=== PATIENT | female | born 1955 | race Caucasian/White ===

== ENCOUNTER → 2017-07-16 | Outpatient (CLI) | payer MEDICARE ==
[~2017-07-16] MED LIST: ARTHROTEC EC 71 EACH PO; AZITHROMYCIN250 MG PO; CYMBALTA60 MG PO; DICLOFENAC SODI75 MG PO; HYDROCODON-ACE1 EA10 PO; HYDROCODON-ACE1 EAC3 PO; HYDROCODON-ACE1 EAC9 PO; IMITREX6 MG/0.51; LABETALOL HCL100 MG PO; LEVAQUIN500 MG PO; LISINOPRIL10 MG PO; LYRICA100 MG PO; LYRICA75 MG PO; NASONEX17 GM INH; PAROXETINE HCL20 MG PO; PAXIL20 MG PO; PAXIL40 MG PO; SUMATRIPTAN SUC25 MG PO; TALWIN NX; VICODIN 5-5001 EACH PO; Z.0.IMITREX100 MG; Z.0.LIPITOR40 MG; Z.0.PAXIL40 MG; pepto bismol
--- NOTE | 2017-07-16 13:30 | Diagnostic Imaging Report ---
EXAMINATION: MRI of the lumbar spine without contrast HISTORY: Chronic low back pain COMPARISON: Lumbar spine MRI on 05-05-14 TECHNIQUE: Sagittal T1, T2, STIR; axial T2 and proton density. FINDINGS: It is assumed that there are 5 lumbar vertebrae. Curvature/Alignment: Normal lordosis. Vertebrae: No evidence of recent fracture, infection, or neoplasm. Conus: Normal, terminating at T12-L1 Cauda equina: Unremarkable. Lower thoracic: Mild disc bulge at T10-T11 and T11-T12 without stenosis Paraspinal soft tissues: Partially visualized T2 hyperintense portable cyst in the left kidney. Degenerative changes: L1-L2: Unremarkable. L2-L3: Decreased disc height and T2 signal intensity, slightly asymmetric to the left and minimal facet arthroses. No significant canal or foraminal stenosis L3-L4: Decrease disc height and T2 signal intensity, mild symmetric disc bulge, prominent facet arthrosis. Minimal anterolisthesis. No significant canal or foraminal stenosis. L4-L5: Decreased disc height and T2 signal intensity, mild symmetric disc bulge and bilateral facet arthrosis. Moderate right and mild left foraminal stenosis. No significant canal stenosis L5-S1: Minimal facet arthrosis. No canal or foraminal stenosis IMPRESSION: 1. Moderate right and mild left degenerative foraminal stenoses at L4-5. No evidence of neural compression. 2. Mild spondylosis and facet arthrosis from L2-L3 to L4-5 otherwise without significant canal or foraminal stenosis. 3. Minimal degenerative spondylolisthesis at L3-L4. Signed by: Dr. Ronit Anne M.D. on 07/16/2017 1:27 PM
== END ==
LOC: MRI 09:57
PROVIDERS: ATTEND Anesthesiology
DX: M54.5 Low back pain (principal)
CPT/HCPCS: 72148

== ENCOUNTER → 2017-08-09 | Outpatient (CLI) | payer OTHER, MEDICARE ==
--- NOTE | 2017-08-10 11:41 | Diagnostic Imaging Report ---
History: Headaches. Comparison studies: None Technique: Sagittal T2; axial DWI, FLAIR, MPGR, T1, Coronal FLAIR. Intravenous contrast: None Findings: Scalp: Normal in signal . No masses . Bone marrow: Normal in signal intensity. Extra-axial: No masses, no fluid collections. Brain sulci: Appropriate for age. Ventricles: Normal in size . No hydrocephalus . Parenchyma: Scattered small T2/flair hyperintensities of the periventricular and deep white matter No masses, hemorrhage, acute or chronic vascular insults. Suprasellar region: No abnormalities. Craniocervical junction: No abnormalities. Patent foramen magnum. No Chiari one malformation. Vessels: Normal flow-voids in the arteries and sinuses. IMPRESSION: 1. No acute intracranial abnormalities. 2. Mild chronic microvascular ischemic changes of the white matter. Age-appropriate volume loss. Signed by: DR Logan Coombs M.D. on 08/10/2017 11:37 AM
== END ==
LOC: MRI 09:41
PROVIDERS: ATTEND Family Medicine
DX: G43.909 Migraine, unspecified, not intractable, without status migrainosus (principal); Z87.898 Personal history of other specified conditions
CPT/HCPCS: 70551

== ENCOUNTER → 2017-12-12 | Outpatient (CLI) | payer OTHER ==
--- NOTE | 2017-12-13 07:37 | Diagnostic Imaging Report ---
Exam: Lumbar spine MRI without IV contrast History: Lumbar spine MRI 07/16/2017 and 05/05/2014. Comparison studies: None Technique: Sagittal and axial T2 , sagittal T1 and IR, axial spin density oblique. Intravenous contrast: None Findings: Number of lumbar vertebral bodies: 5. Alignment: Normal lumbar lordosis. Mild lumbar curvature convex to the right centered at L2-L3. Minimal degenerative Grade 1 retrolisthesis of L2 on L3, anterolisthesis of L3 on L4 and retrolisthesis of L4 and L5. Soft tissues: No T2 hyperintense inflammatory changes. Paraspinal muscles: No signal abnormalities. Well-preserved. No atrophic changes Lower thoracic cord: Normal in signal and morphology. The tip of the conus is at T12-L1. Cauda equina: No masses. No arachnoiditis. Vertebrae: No compression fractures, infection or neoplasm. Degenerative changes: Loss of T2/STIR disc signal from T9 to T12 and from L2 to L5. T11-T12: Mild loss of disc height. Disc bulge and mild facet arthrosis do not result in significant canal or foraminal stenosis. T12-L1: No abnormalities. L1-L2: Mild facet arthrosis. Patent canal and foramina. L2-L3: Mild loss of disc height. Asymmetric left disc bulge with small foraminal annular fissure and bilateral facet arthrosis with small bilateral facet effusions without significant canal or foraminal stenosis L3-L4: Mild loss of disc height. Asymmetric left disc bulge with small annular fissures, thickened ligamentum flavum and bilateral facet arthrosis with small left facet effusion without significant canal or foraminal stenosis. L4-L5: Mild loss of disc height posteriorly. Asymmetric right disc bulge, thickened ligamentum flavum and bilateral facet arthrosis with small bilateral facet effusions with mild foraminal stenosis (right greater than left. No significant canal stenosis. L5-S1: Mild right facet arthrosis. Patent canal and foramina. Additional findings: A T2 hyperintense 3.3 cm left renal cyst is unchanged. IMPRESSION: No significant changes from the previous lumbar spine MRI 07/16/2017. 1. Mild multilevel disc degeneration. 2. Mild mild L4-L5 degenerative foraminal stenosis (right greater than left). 3. Multilevel facet arthrosis. 4. No significant lumbar canal stenosis. Signed by: Dr. Dane Dunlap M.D. on 12/13/2017 7:34 AM
== END ==
LOC: MRI 08:57
PROVIDERS: ATTEND Family Medicine
DX: M54.41 Lumbago with sciatica, right side (principal); R29.898 Other symptoms and signs involving the musculoskeletal system
CPT/HCPCS: 72148

== ENCOUNTER → 2018-03-27 | Outpatient (CLI) | payer MEDICARE, OTHER ==
--- NOTE | 2018-03-28 15:02 | Diagnostic Imaging Report ---
EXAMINATION: MRI of the cervical spine without contrast HISTORY: Status post fall 2 weeks ago, severe neck pain, prior spine surgery COMPARISON: Cervical spine CT on 09/06/2016 TECHNIQUE: Sagittal T1, T2, STIR; axial T2, gradient echo. Image quality: Magnetic susceptibility artifact from spinal fusion limits overall evaluation. FINDINGS: Curvature: Persistent kyphotic malalignment and from C6 to T1. Vertebrae: -Status post ACDF with solid interbody fusion from C5 to C7. Stable posterior retropulsion of C7 within the spinal canal, better visualized on cervical spine CT. -No acute fractures or evidence of infection. Foramen magnum: No mass, Chiari malformation, or basilar invagination. Spinal Cord: Limited evaluation, grossly no abnormal signal or atrophy. Soft Tissues: Unremarkable. Degenerative changes: C1-C2: Unremarkable. C2-C3: Unremarkable. C3-C4: Asymmetric to the right disc osteophyte complex formation, bilateral uncovertebral and facet arthrosis. Persistent moderate foraminal stenosis on the right. Mild canal stenosis. C4-C5: Asymmetric to the right disc osteophyte, uncovertebral and facet arthrosis. Persistent moderate right foraminal stenoses . C5-C6: Growth with no stenoses C6-C7: Gross renal stenoses C7-T1: Cannot be evaluated. IMPRESSION: Suboptimally study due to magnetic susceptibility artifact. 1. No acute abnormalities. 2. Unchanged kyphotic malalignment from C6 to T1. 3. Unchanged moderate degenerative foraminal stenoses on the right at C3-C4 and C4-C5. Signed by: Dr. Ronit Anne M.D. on 03/28/2018 2:59 PM
== END ==
LOC: MRI 16:44
PROVIDERS: ATTEND Family Medicine
DX: Z98.890 Other specified postprocedural states (principal); M47.812 Spondylosis without myelopathy or radiculopathy, cervical region
CPT/HCPCS: 72141

== ENCOUNTER → 2018-07-08 | Outpatient (CLI) | payer OTHER ==
--- NOTE | 2018-07-08 12:10 | Diagnostic Imaging Report ---
TECHNIQUE: Magnetic resonance imaging of the LEFT KNEE was performed WITHOUT injected contrast. HISTORY: Acute pain, fell, jumped down off the porch, 2 weeks ago, no provided history of prior surgery COMPARISON: None available. FINDINGS: LIGAMENTS AND TENDONS: ACL: The distal fibers near the tibial insertion are ill-defined with hyperintense signal and subtle laxity. PCL: Intact Collateral ligaments: Intact Iliotibial band: Unremarkable Popliteal tendon: Intact Extensor mechanism: Intact JOINT: Menisci: Medial: Focal attenuation extending to the tibial articular surface of the posterior horn (series 7 image 20). Mild free margin attenuation and contour irregularity of the body and posterior horn. Lateral: Severe attenuation and complex tearing of the anterior horn and to a lesser degree the free margin and tibial articular surface of the body, peripheral extrusion of the body remnants. Articular Cartilage: Medial Compartment: Low-grade erosion of the weightbearing cartilage. Lateral Compartment: Erosion of the weightbearing cartilage, most notably high-grade of the posterior weightbearing cartilage. Patellofemoral Compartment: Diffuse low to intermediate grade erosion of the patellar cartilage. Joint Fluid: A large nonspecific joint effusion with prominent synovitis and a multilobulated Sellers's cyst, measuring up to 2.6 cm (AP) x 2.6 cm (ML) x 7.1 cm (CC). BONES: No focal or infiltrative bone marrow replacing abnormality. No acute fracture. Mild subchondral bone marrow edema at the posterior periphery of the lateral tibial plateau. SOFT TISSUES: Moderate regional soft tissue edema. IMPRESSION: 1. Acute versus acute on chronic low-grade partial thickness tearing and high-grade sprain of the anterior cruciate ligament. 2. Degenerative tearing of the lateral meniscus greater than the medial meniscus, acute on chronic tearing of the lateral meniscus is probable. 3. Small focal lateral tibial plateau bone marrow contusion. 4. Prominent synovitis with a large joint effusion and multilobulated Sellers's cyst. 5. Tricompartmental osteoarthrosis. Signed by: Dr. Joe Marina D.O., M.M.M. on 07/08/2018 12:07 PM
== END ==
LOC: MRI 10:43
PROVIDERS: ATTEND Family Medicine
DX: M25.562 Pain in left knee (principal)

== ENCOUNTER 2018-08-07 12:35 | Emergency (ER) | payer MEDICARE, OTHER ==
[~2018-08-07] VITALS: Ht 160 cm; Wt 62.6 kg
--- OUTSIDE RECORDS SUMMARY | 2018-08-07 12:38 | XMS REPORT | Summary of Care ---
Author Author [facility] Outpatient Imaging [facility] [place] Address Unknown Phone Unavailable Encounter HQ Encntr_alias(FIN) [id number] Date(s): 02/29/16 - 02/29/16 [facility] Outpatient [facility] [place] [address] [place] [phone] Discharge Disposition: Home or Self Care Attending Physician: Humberto Loyd MD Vital Signs No data available for this section Problem List No data available for this section Allergies, Adverse Reactions, Alerts No data available for this section Medications No data available for this section Results No data available for this section Immunizations No data available for this section Procedures Procedure Date Related Diagnosis Body Site Injection procedure for ankle arthrography 02/29/16 Social History No data available for this section Assessment and Plan No data available for this section
--- OUTSIDE RECORDS SUMMARY | 2018-08-07 12:38 | XMS REPORT | Summary of Care ---
Author Author [facility] Outpatient Imaging - [place] Organization [facility] [place] Address Unknown Phone Unavailable Encounter HQ Encntr_khadijah(FIN) [id number] Date(s): 11/18/15 - 11/18/15 [facility] Out[facility] - [place] [address] [place] [phone] Discharge Disposition: Home Attending Physician: Dane Santoyo MD Vital Signs No data available for this section Problem List No data available for this section Allergies, Adverse Reactions, Alerts No data available for this section Medications No data available for this section Results No data available for this section Immunizations No data available for this section Procedures No data available for this section Social History No data available for this section Assessment and Plan No data available for this section
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
--- OUTSIDE RECORDS SUMMARY | 2018-08-07 12:38 | XMS REPORT | Summary of Care ---
Author Author [facility] Outpatient [facility] - [place] Organization [facility] [place] Address Unknown Phone Unavailable Encounter HQ Encntr_aliдмитрий(FIN) [id number] Date(s): 09/24/15 - 09/24/15 [facility] [place] [address] [place], [place] [address] [phone] Discharge Disposition: Home Attending Physician: Dane Santoyo [...]
--- OUTSIDE RECORDS SUMMARY | 2018-08-07 12:38 | XMS REPORT | Summary of Care ---
Author Author [facility] Neurosurgery [facility] Organization [facility] Address Unknown Phone Unavailable Encounter HQ Sony(FIN) [id number] Date(s): 01/01/18 - 01/01/18 [facility] Neurosurgery [facility] [address] [address], [address] [place] [phone] Discharge Disposition: Home or Self Care Attending Physician: Aleksander Lagunas MD Referring Physician: Bi Hall DO Vital Signs No data available for this [...]
--- OUTSIDE RECORDS SUMMARY | 2018-08-07 12:38 | XMS REPORT | Summary of Care ---
Author Author [facility] Neurosurgery [facility] Organization [facility] Neurosurgery [facility] Address Unknown Phone Unavailable Encounter HQ Fannientr_khadijah(FIN) [id number] Date(s): 12/17/17 - 12/18/17 [facility] Neurosurgery [facility] [address], [address] [place] [phone] Vital Signs No data available for this [...]
--- OUTSIDE RECORDS SUMMARY | 2018-08-07 12:38 | XMS REPORT | Clinical Summary ---
Author Author [facility] Organization [facility] Address Unknown Phone Unavailable Care Team Providers Care Metal Loader Name Role Phone Asked, No Pcp PCP Unavailable Allergies Comments Active Allergy Reactions Severity Noted Date Ketorolac Hives, 01/24/2017 Itching Shellfish Derived Hives Medications End Date Status Medication Sig Dispensed Refills Start Date Active pregabalin (LYRICA) 100 Lyrica 100 mg 0 MG capsule capsule Active mometasone (NASONEX) 50 Nasonex 50 0 mcg/actuation nasal spray mcg/actuation [place] Active PARoxetine (PAXIL) 40 MG Take 1 tablet 0 tablet every day by oral route. Active SUMAtriptan (IMITREX) 100 sumatriptan 0 MG tablet 100 mg tablet Active SUMAtriptan succinate sumatriptan 6 0 (IMITREX) 6 mg/0.5 mL mg/0.5 mL solution subcutaneous solution Active lisinopril Daily 0 (PRINIVIL,ZESTRIL) 10 mg tablet Active HYDROcodone-acetaminophen Take 1 tablet 0 (NORCO) 10-325 mg per by mouth tablet every 6 (six) hours as needed for moderate pain. Active LIPITOR 20 mg tablet Take 20 mg by 0 mouth daily. 8 05/01/2018 Discontinued labetalol (NORMODYNE) 100 labetalol 100 0 MG tablet mg tablet 05/01/2018 Discontinued pneumococcal Pneumovax 23 0 polysaccharide 23-valent 25 mcg/0.5 mL (PNEUMOVAX 23) 25 mcg/0.5 injection mL vaccine solution 05/15/2018 Discontinued SUMAtriptan succinate Sumavel 0 (SUMAVEL DOSEPRO) 6 DosePro 6 mg/0.5 mL needle-free mg/0.5 mL injector subcutaneous needle-free injector 05/01/2018 Discontinued gabapentin (NEURONTIN) Take 1 90 capsule 11 300 mg capsule (300 7 capsuleIndications: Acute mg total) by pain of left shoulder mouth 3 (three) times a day. 05/01/2018 Discontinued methocarbamol (ROBAXIN) TAKE 1 TABLET 120 tablet 0 500 MG tabletIndications: BY MOUTH FOUR 7 Acute pain of left TIMES DAILY shoulder 05/20/2018 cephalexin (KEFLEX) 500 Take 1 15 capsule 0 MG capsule capsule (500 8 mg total) by mouth 3 (three) times a day for 5 days. 05/20/2018 acetaminophen-codeine Take 1 tablet 20 tablet 0 (TYLENOL WITH CODEINE #3) by mouth 8 300-30 mg per tablet every 4 (four) hours as needed for moderate pain for up to 5 days. Active Problems Problem Noted Date Arthritis of left shoulder region 03/30/2017 S/P shoulder surgery 02/16/2017 Avascular necrosis of bone 02/16/2017 Breast mass 02/16/2017 Degeneration of lumbar intervertebral disc 02/16/2017 Fracture of 5th metatarsal 02/16/2017 Spinal stenosis 02/16/2017 Status post total shoulder arthroplasty 01/26/2017 Glenoid fracture of shoulder 01/26/2017 Encounters Care Team Description Date Type Specialty Janette Chun NP 05/15/2018 Anesthesia General Surgery Event Darryl Montemayor MD PLACEMENT OF PAIN PUMP SYSTEM 05/15/2018 Surgery General Surgery Darryl Montemayor MD Chronic back pain, unspecified back location, unspecified back pain laterality 05/15/2018 [facility] General Surgery Encounter Maricarmen Barrera, supervisor quality control back pain, unspecified back location, unspecified back pain laterality (Primary Dx) 05/14/2018 Prep for Neurosurgery Surgery Darryl Montemayor MD Preop examination (Primary Dx); Chronic pain syndrome; Chronic low back pain, unspecified back pain laterality, with sciatica presence unspecified 05/01/2018 Pre-Admit Pre-Admission Testing Testing Appointment Darryl Montemayor MD Chronic pain syndrome (Primary Dx); Chronic low back pain, unspecified back pain laterality, with sciatica presence unspecified 04/17/2018 Transcribe Neurosurgery Orders Darryl Montemayor MD Chronic bilateral low back pain with right-sided sciatica (Primary Dx); Chronic pain syndrome 04/15/2018 Office Visit Neurosurgery Darryl Montemayor MD 04/15/2018 Abstract Neurosurgery after 08/06/2017 Family History Medical History Relation Name Comments Cirrhosis Father Cancer Mother Relation Name Status Comments Father Mother Social History Date Tobacco Use Types Packs/Day Years Used Never Smoker Smokeless Tobacco: Never Used Alcohol Use Drinks/Week oz/Week Comments No Sex Assigned at Date Recorded Not on file Industry Job Start Date Occupation Not on file Not on file Not on file Travel End Travel History Travel Start No recent travel history available. Last Filed Vital Signs Time Taken Vital Sign Reading 05/15/2018 2:59 PM RECYCLING DIRECTOR Blood Pressure 127/83 05/15/2018 2:59 PM RECYCLING DIRECTOR Pulse 73 05/15/2018 2:59 PM RECYCLING DIRECTOR Temperature 36.3 C (97.3 F) 05/15/2018 2:59 PM RECYCLING DIRECTOR Respiratory Rate 19 05/15/2018 2:59 PM RECYCLING DIRECTOR Oxygen Saturation 96% - Inhaled Oxygen - Concentration 05/15/2018 10:40 AM RECYCLING DIRECTOR Weight 63.5 kg (140 lb) 05/15/2018 10:40 AM RECYCLING DIRECTOR Height 160 cm (5' 3") 05/15/2018 10:40 AM RECYCLING DIRECTOR Body Mass Index 24.8 Plan of Treatment Health Maintenance Due Date Last Done Comments CERVICAL CANCER SCREENING 1977 BREAST CANCER SCREENING 2006 COLON CANCER SCREENING 2006 SHINGLES VACCINES (#1) 2006 INFLUENZA VACCINE 01/02/2018 Implants Device Identifier Shelf Expiration Date Model / Serial / Lot Implanted Type Area Manufactur er 08/01/2018 [id number] / / [id number] Vitoss Bbtrauma Foam Pack 10cc - IPM Left: Shoulder ROSALINE [id number] IMPLANT ORTH[employer] Implanted: Qty: 1 on 02/16/2017 by Raudel Lora MD 10/20/2021 [id number] / [id number] / Ascend Flex Reversed Traycentered IPM Left: Shoulder TORNIER Reversed Tray (+)0 - [id number] - IMPLANT INC [id number] Implanted: Qty: 1 on 03/30/2017 by Raudel Randolph MD 03/11/2022 [id number] / / Glenosphere - 36mm Emani X 6mm Thk IPM Left: Shoulder ROSALINE 2mm Eccentric - [id number] IMPLANT ORTH[employer] Implanted: Qty: 1 on 03/30/2017 by Raudel Lora MD 01/11/2021 [id number] / / [id number] 6.5mm Center Screw - 40mm - IPM Left: Shoulder ROSALINE [id number] IMPLANT ORTH[employer] Implanted: Qty: 1 on 03/30/2017 by Raudel Lora MD 02/11/2022 [id number] / / Shoulder Glenoid Baseplate Reunion IPM Left: Shoulder ROSALINE Rsa - [id number] IMPLANT ORTH[employer] Implanted: Qty: 1 on 03/30/2017 by Raudel Lora MD 03/30/2021 [id number] / / [id number] 4.5mm Peripheral Screw - 40mm - IPM Left: Shoulder ROSALINE [id number] IMPLANT ORTHOP[employer]IC Implanted: Qty: 2 on 03/30/2017 by Raudel Lora MD 02/11/2022 [id number] / / Shoulder Glenoid Baseplate Reunion IPM Left: Shoulder ROSALINE Rsa - [id number] IMPLANT ORTH[employer]EDIC Implanted: Qty: 1 on 03/30/2017 by Raudel Lora MD 01/02/2022 [id number] / / [id number] 4.5mm Peripheral Screw - 20mm - IPM Left: Shoulder ROSALINE [id number] IMPLANT ORTHOPEDIC Implanted: Qty: 1 on 03/30/2017 by Raudel Lora MD 11/16/2021 [id number] / [id number] / Ascend Flex Standard Reversed IPM Left: Shoulder TORNIER [id number] Diameter Standard IMPLANT INC Reversed Insert (+)9 - [id number] - DEVICES [id number] Implanted: Qty: 1 on 03/30/2017 by Raudel Randolph MD 11/06/2021 [id number] / / [id number] 4.5mm Peripheral Screw - 28mm - IPM Left: Shoulder ROSALINE [id number] IMPLANT ORTHOPEDIC Implanted: Qty: 1 on 03/30/2017 by Raudel Lora MD 09/30/2019 [id number] / [id number] / [id number] Infsn Synchromed Ii W/ Fltr Neurosurgi N/A: N/A MEDTRONIC Sut Loop Prgrmbl Rsvr 20ml - paula NEUROMODUL [id number] - [id number] Implants [facility] Implanted: Qty: 1 on 05/15/2018 by Darryl Montemayor MD 02/01/2023 [id number] / / [id number] Passer Cath W/ Rmvbl Hndl And Ppe Neurosurgi N/A: N/A MEDTRONIC Obtrtr 38cm Strl - [id number] paula NEUROMODUL Implanted: Qty: 1 on 05/15/2018 by Implants ATION Darryl Montemayor MD Procedures Comments Procedure Name Priority Date/Time Associated Diagnosis OR FL < 1 HOUR Routine 05/15/2018 12:35 PM RECYCLING DIRECTOR WA AN ELECTIVE Routine 05/15/2018 ENDOTRACHEAL AIRWAY 12:15 PM RECYCLING DIRECTOR Procedure Note - Shawanda Palacio CRNA - 05/15/2018 12:15 PM RECYCLING DIRECTOR ANESTHESIA INTUBATION Date/Time: 05/15/2018 12:01 PM Performed by: Shawanda Palacio CRNA Authorized by: Lincoln Carpenter MD Location: OR Urgency: Elective Difficult Airway: No Preoxygena jose angel with 100% O2: Yes C-spine Precaution s Maintained Throughout : Yes Mask Ventilatio n: Easy mask Final Airway Type: Endotrache al airway Final Endotrache al Airway: ETT Cuffed: Yes Technique Used: Direct laryngosco py Devices/Me thods Used in Placement: Intubatin g stylet Blade Type: Hamlin Laryngosco pe Blade/Vide olaryngosc ope Blade Size: 2 ETT Size (mm): 7.0 Cuff at minimum occlusion pressure: Yes Measured from: Gums ETT to Gums (cm): 21 Placement Verified by: CO2 detection Laryngosc opic view: Grade I - full view of glottis Number of Attempts at Approach: 1 INSERTION OR REVISION, 05/15/2018 Chronic pain syndrome BACLOFEN OR MORPHINE PUMP 10:55 AM RECYCLING DIRECTOR Case Notes C-ARM, SKYTRON TABLE, MEDTRONIC DEVICE Special Needs C-ARM, SKYTRON TABLE, MEDTRONIC DEVICE URINE CULTURE Routine 05/01/2018 10:57 AM RECYCLING DIRECTOR ECG PRE/POST OP Routine 05/01/2018 Preop examination 9:30 AM RECYCLING DIRECTOR ESTIMATED GFR Routine 05/01/2018 9:02 AM RECYCLING DIRECTOR BASIC METABOLIC PANEL Routine 05/01/2018 Preop examination 9:02 AM RECYCLING DIRECTOR HC COMPLETE BLD COUNT Routine 05/01/2018 Preop examination W/AUTO DIFF 9:02 AM RECYCLING DIRECTOR URINALYSIS SCREEN AND Routine 05/01/2018 Preop examination MICROSCOPY, WITH REFLEX 9:02 AM RECYCLING DIRECTOR TO CULTURE after 08/06/2017 Results * OR FL < 1 Hour (05/15/2018 12:35 PM RECYCLING DIRECTOR) Narrative Performed At EXAMINATION:[place] FL 1 HOUR [facility] C-arm fluoroscopy was requested in OR. Location: [facility] OR 10 Procedure: MED PUMP INS Start: 1220 End: 1235 Fluoro Time: 0.1M mGy: 1.04 Tech: JV IMPRESSION: Separate operative report will be issued by the physician performing the procedure. [id number] Procedure Note Hm Interface, Radiology Results Incoming - 05/15/2018 9:41 PM RECYCLING DIRECTOR EXAMINATION: OR FL 1 HOUR C-arm fluoroscopy was requested in OR. Location: [facility] OR 10 Procedure: MED PUMP INS Start: 1220 End: 1235 Fluoro Time: 0.1M mGy: 1.04 Tech: JV IMPRESSION: Separate operative report will be issued by the physician performing the procedure. [id number] Performing Organization Address City/[facility]/Zipcode Phone Number [facility] [address] [place] [address] * Urine culture (05/01/2018 10:57 AM RECYCLING DIRECTOR) Urine culture SEE COMMENTComment: TOMMY ROLDAN Bacteriuria screen negative. HOSPITAL Performing Organization Address City/[facility] Phone Number [facility] DEPARTMENT OF [address] [place] [id number] PATHOLOGY AND GENOMIC MEDICINE [facility] [address] [place] [address] HOSPITAL * ECG Pre/Post Op (05/01/2018 9:30 AM RECYCLING DIRECTOR) Ventricular rate 67 [facility] Atrial rate 67 [facility] WA interval 148 [facility] QRSD interval 88 [facility] QT interval 420 [facility] QTC interval 443 [facility] P axis 1 53 [facility] QRS axis 1 8 [facility] T wave axis 34 [facility] EKG impression Sinus rhythm with premature [facility] M[facility] supraventricular complexes-Otherwise normal ECG-In automated comparison with ECG of 24-JAN-2017 11:53,-premature supraventricular complexes are now present- Narrative Performed At Performing Organization Address City/[facility]/Zipcode Phone Number [facility] MUSE [address] [place] [phone] * Urinalysis screen and microscopy, with reflex to culture (05/01/2018 9:02 AM RECYCLING DIRECTOR) Specimen site Clean catch Color, UA Straw Appearance, UA Clear Specific gravity, UA 1.025 1.001 - 1.035 pH, UA 5.0 5.0 - 8.5 Protein, UA Negative Negative Glucose, UA Negative Negative Ketones, UA Negative Negative Bilirubin, UA Negative Negative Blood, UA Negative Negative Nitrite, UA Negative Negative Urobilinogen, UA <2.0 <2.0 Leukocyte esterase, UA Negative Negative Epithelial cells, UA <1 /HPF WBC, UA None seen 0 - 4 /HPF RBC, UA <1 0 - 5 /HPF Bacteria, UA None seen None seen Yeast, UA None seen Yeast with pseudohyphae, None seen [facility] Specimen Urine Performing Organization Address City/State/Zipcode Phone Number [facility] DEPARTMENT OF [address] [place] [phone] PATHOLOGY [place] [address] HOSPITAL * Estimated GFR (05/01/2018 9:02 AM RECYCLING DIRECTOR) Estimated GFR 56 (A) mL/min/1.73 m2 [facility] Comment: HOSPITAL CatergoryUnitsInte rpretation G1 >=90 Normal or high G2 60-89Mildly decreased [id number] Mildly to moderately decreased A0z10-16 Moderately to severely decreased G4 15-29Severely decreased G5 <15Kidney failure The eGFR was calculated using the Chronic Kidney Disease Epidemiology Collaboration (CKD-EPI) equation. Interpretation is based on recommendations of the National Kidney Foundation-Kidney Disease Outcomes Quality Initiative (NKF-KDOQI) published in 2014. Specimen Plasma specimen Performing Organization Address City/[facility] Cent[facility]ode Phone Number [address] [address] PATHOLOGY AND GENOMIC MEDICINE [address] * CBC with platelet and differential (05/01/2018 9:02 AM RECYCLING DIRECTOR) WBC 6.49 4.50 - 11.00 k/uL RBC 4.36 4.20 - 5.50 m/uL HGB 12.8 12.0 - 16.0 g/dL HCT 40.1 37.0 - 47.0 % MCV 92.0 82.0 - 100.0 fL MCH 29.4 27.0 - 34.0 pg MCHC 31.9 31.0 - 37.0 g/dL RDW - SD 43.6 37.0 - 55.0 fL MPV 10.2 8.8 - 13.2 fL Platelet count 295 150 - 400 k/uL Nucleated RBC 0.00 /100 WBC Neutrophils 59.8 39.0 - 69.0 % Lymphocytes 28.4 25.0 - 45.0 % Monocytes 8.0 0.0 - 10.0 % Eosinophils 2.3 0.0 - 5.0 % Basophils 0.6 0.0 - 1.0 % Immature granulocytes 0.9Comment: "Immature 0.0 - 1.0 % [facility] granulocytes" (promyelocytes, HOSPITAL myelocytes, metamyelocytes) Specimen Urine Performing Organization Address City/State/Zipcode Phone Number [facility] DEPARTMENT [address] [address] PATHOLOGY AND GENOMIC MEDICINE [address] * Basic metabolic panel (05/01/2018 9:02 AM RECYCLING DIRECTOR) Sodium 143 135 - 148 mEq/L Potassium 4.5 3.5 - 5.0 mEq/L Chloride 102 98 - 112 mEq/L CO2 25 24 - 31 mEq/L Anion gap 16@ANIO (H) 7 - 15 mEq/L BUN 23 8 - 23 mg/dL Creatinine 1.07 (H) 0.50 - 0.90 mg/dL Glucose 101 (H) 65 - 99 mg/dL Calcium 9.7 8.8 - 10.2 mg/dL Specimen Plasma specimen Performing Organization Address City/State/Zipcode Phone Number [facility] DEPARTMENT OF [address] [place] [phone] PATHOLOGY [place] [address] HOSPITAL after 08/06/2017 Insurance Payer Benefit Subscriber ID Type Phone Address Plan / Group [facility] MEDICARE [facility] DUAL xxxxxxxxx HMO COMPLETE [facility] Advance Directives Patient has advance care planning documents on file. For more information, hiral gama contact: [address] [phone]
--- OUTSIDE RECORDS SUMMARY | 2018-08-07 12:38 | XMS REPORT | Summary of Care ---
Author Author [facility] [place] Organization [facility] [place] Address Unknown Phone Unavailable Encounter HQ Encntr_aliдмитрий(FIN) [id number] Date(s): 06/15/17 - 06/15/17 [facility] [place] [address] [place], [place] [address] [phone] Encounter Diagnosis Low back pain (Final) - 06/20/17 Spondylosis without myelopathy or radiculopathy, lumbar region (Final) - Other intervertebral disc degeneration, lumbar region (Final) - Other forms of scoliosis, lumbar region (Final) - Discharge Disposition: Home or Self Care Attending Physician: Kali Lyons MD Vital Signs No data available for [...]
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
--- OUTSIDE RECORDS SUMMARY | 2018-08-07 12:38 | XMS REPORT ---
Author Author [facility] Address Unknown Phone Unavailable Care Team Providers Care Plate Grinder Name Role Phone CHAUNCEY DUBOIS Unavailable Unavailable BRETT DUBOIS Unavailable Unavailable Charly MONTEMAYOR Unavailable Unavailable Charly HAHN Unavailable Unavailable Problems This patient has no known problems. Allergies, Adverse Reactions, Alerts This patient has no known allergies or adverse reactions. Medications This patient has no known medications. Results Test Description Test Time Test Comments Text Results Atomic Results Result Comments MRI KNEE LEFT WO 2018-07-08 11:53:00 [place] [address] Patient Name: BLAYNE YIP MR #: [id number] : 1955 Age/Sex: 63/F Req #: [id number] Adm Physician: Ordered by: DUBOIS ANDREW DO Report #: [id number] Location: MRI Room/Bed: Procedure: [id number] MRI/MRI KNEE LEFT WO Exam Date: 07/08/18 Exam Time: 1110 REPORT STATUS: Signed TECHNIQUE: Magnetic resonance imaging of the LEFT KNEE was performed WITHOUT injected contrast. HISTORY: Acute pain, fell, jumped down off the porch, 2 weeks ago, no provided history of prior surgery COMPARISON: None available. FINDINGS: LIGAMENTS AND TENDONS: ACL: The distal fibers near the tibial insertion are ill-defined with hyperintense signal and subtle laxity. PCL: Intact Collateral ligaments: Intact Iliotibial band: Unremarkable Popliteal tendon: Intact Extensor mechanism: Intact JOINT: Menisci: Medial: Focal attenuation extending to the tibial articular surface of the posterior horn (series 7 image 20). Mild free margin attenuation and contour irregularity of the body and posterior horn. Lateral: Severe attenuation and complex tearing of the anterior horn and to a lesser degree the free margin and tibial articular surface of the body, peripheral extrusion of the body remnants. Articular Cartilage: Medial Compartment: Low-grade erosion of the weightbearing cartilage. Lateral Compartment: Erosion of the weightbearing cartilage, most notably high-grade of the posterior weightbearing cartilage. Patellofemoral Compartment: Diffuse low to intermediate grade erosion of the patellar cartilage. Joint Fluid: A large nonspecific joint effusion with prominent synovitis and a multilobulated Sellers's cyst, measuring up to 2.6 cm (AP) x 2.6 cm (ML) x 7.1 cm (CC). BONES: No focal or infiltrative bone marrow replacing abnormality. No acute fracture. Mild subchondral bone marrow edema at the posterior periphery of the lateral tibial plateau. SOFT TISSUES: Moderate regional soft tissue edema. IMPRESSION: 1. Acute versus acute on chronic low-grade partial thickness tearing and high-grade sprain of the anterior cruciate ligament. 2. Degenerative tearing of the lateral meniscus greater than the medial meniscus, acute on chronic tearing of the lateral meniscus is probable. 3. Small focal lateral tibial plateau bone marrow contusion. 4. Prominent synovitis with a large joint effusion and multilobulated Sellers's cyst. 5. Tricompartmental osteoarthrosis. Signed by: Dr. Stephany Marina D.O., M.M.M. on 07/08/2018 12:07 PM Dictated By: STEPHANY MARINA DO 1207 Transcribed By: MADELYN on 07/08/18 1207 COPY TO: CHAUNCEY DUBOIS DO MRI SPINE CERVICAL WO 2018-03-28 14:37:00 [place] [address] Patient Name: BLAYNE YIP MR #: [id number] : 1955 Age/Sex: 62/F Req #: [id number] Adm Physician: Ordered by: DUBOIS ANDREW DO Report #: [id number] Location: MRI Room/Bed: Procedure: [id number] MRI/MRI SPINE CERVICAL WO Exam Date: Exam Time: REPORT STATUS: Signed EXAMINATION: MRI of the cervical spine without contrast HI STORY: Status post fall 2 weeks ago, severe neck pain, prior spine surgery COMPARISON: Cervical spine CT on 09/06/2016 TECHNIQUE: Sagittal T1, T2, STIR; axial T2, gradient echo. Image quality: Magnetic susceptibility artifact from spinal fusion limits overall evaluation. FINDINGS: Curvature: Persistent kyphotic malalignment and from C6 to T1. Vertebrae: -Status post ACDF with solid interbody fusion from C5 to C7. Stable posterior retropulsion of C7 within the spinal canal, better visualized on cervical spine CT. -No acute fractures or evidence of infection. Foramen magnum: No mass, Chiari malformation, or basilar invagination. Spinal Cord: Limited evaluation, grossly no abnormal signal or atrophy. Soft Tissues: Unremarkable. Degenerative changes: C1-C2: Unremarkable. C2-C3: Unremarkable. C3-C4: Asymmetric to the right disc osteophyte complex formation, bilateral uncovertebral and facet arthrosis. Persistent moderate foraminal stenosis on the right. Mild canal stenosis. C4-C5: Asymmetric to the right disc osteophyte, uncovertebral and facet arthrosis. Persistent moderate right foraminal stenoses . C5-C6: Growth with no stenoses C6-C7: Gross renal stenoses C7-T1: Cannot be evaluated. IMPRESSION: Suboptimally study due to magnetic susceptibility artifact. 1. No acute abnormalities. 2. Unchanged kyphotic malalignment from C6 to T1. 3. Unchanged moderate degenerative foraminal stenoses on the right at C3-C4 and C4-C5. Signed by: Dr. Jose Miguel Anne M.D. on 03/28/2018 2:59 PM Dictated By: JOSE MIGUEL ANNE MD 58 Transcribed By: MADELYN on 03/28/181458 COPY TO: CHAUNCEY DUBOIS DO MRI SPINE LUMBAR WO 2017-12-13 07:21:00 [place] [address] Patient Name: BLAYNE YIP MR #: [id number] : 1955 Age/Sex: 62/F Req #: [id number] Adm Physician: Ordered by: BRETT DUBOIS DO Report #: [id number] Location: MRI Room/Bed: Procedure: [id number] MRI/MRI SPINE LUMBAR WO Exam Date: Exam Time: REPORT STATUS: Signed Exam: Lumbar spine MRI without IV contrast History: Lumbar spine MRI 07/16/2017 and 05/05/2014. Comparison studies: None Technique: Sagittal and axial T2 , sagittal T1 and IR, axial spin density oblique. Intravenous contrast: None Findings: Number of lumbar vertebral bodies: 5. Alignment: Normal lumbar lordosis. Mild lumbar curvature convex to the right centered at L2-L3. Minimal degenerative Grade 1 retrolisthesis of L2 on L3, anterolisthesis of L3 on L4 and retrolisthesis of L4 and L5. Soft tissues: No T2 hyperintense inflammatory changes. Paraspinal muscles: No signal abnormalities. Well-preserved. No atrophic changes Lower thoracic cord: Normal in signal and morphology. The tip of the conus is at T12-L1. Cauda equina: No masses. No arachnoiditis. Vertebrae: No compression f ractures, infection or neoplasm. Degenerative changes: Loss of T2/STIR disc signal from T9 to T12 and from L2 to L5. T11-T12: Mild loss of disc height. Disc bulge and mild facet arthrosis do not result in significant canal or foraminal stenosis. T12-L1: No abnormalities. L1-L2: Mild facet arthrosis. Patent canal and foramina. L2-L3: Mild loss of disc height. Asymmetric left disc bulge with small foraminal annular fissure and bilateral facet arthrosis with small bilateral facet effusions without significant canal or foraminal stenosis L3-L4: Mild loss of disc height. Asymmetric left disc bulge with small annular fissures, thickened ligamentum flavum and bilateral facet arthrosis with small left facet effusion without significant canal or foraminal stenosis. L4-L5: Mild loss of disc height posteriorly. Asymmetric right disc bulge, thickened ligamentum flavum and bilateral facet arthrosis with small bilateral facet effusions with mild foraminal stenosis (right greater than left. No significant canal stenosis. L5-S1: Mild right facet arthrosis. Patent canal and foramina. Additional findings: A T2 hyperintense 3.3 cm left renal cyst is unchanged. IMPRESSION: No significant changes from the previous lumbar spine MRI 07/16/2017. 1. Mild multilevel disc degeneration. 2. Mild mild L4-L5 degenerative foraminal stenosis (right greater than left). 3. Multilevel facet arthrosis. 4. No significant lumbar canal stenosis. Signed by: Dr. Rossana Dunlap M.D. on 12/13/2017 7:34 AM Dictated By: ROSSANA DUNLAP MD 3 Transcribed By: MADELYN on 12/13/17733 COPY TO: BRETT DUBOIS DO MRI BRAIN [place] [address] Patient Name: BLAYNE YIP MR #: [id number] : 1955 Age/Sex: 62/F Req #: [id number] Adm Physician: Ordered by: BRETT DUBOIS DO Report #: [id number] Location: MRI Room/Bed: Procedure: [id number] MRI/MRI BRAIN WO Exam Date: Exam Time: REPORT STATUS: Signed History: Headaches. Comparison studies: None Technique: Sagittal T2; axial DWI, FLAIR, MPGR, T1, Coronal FLAIR. Intravenous contrast: None Findings: Scalp: Normal in signal . No masses . Bone marrow: Normal in signal intensity. Extra-axial: No masses, no fluid collections. Brain sulci: Appropriate for age. Ventricles: Normal in size . No hydrocephalus . Parenchyma: Scattered small T2/flair hyperintensities of the periventricular and deep white matter No masses, hemorrhage, acute or chronic vascular insults. Suprasellar region: No abnormalities. Craniocervical junction: No abnormalities. Patent foramen magnum. No Chiari one malformation. Vessels: Normal flow-voids in the arteries and sinuses. IMPRESSION: 1. No acute intracranial abnormalities. 2. Mild chronic microvascular ischemic changes of the white matter. Age-appropriate volume loss. Signed by: DR Logan Coombs M.D. on 08/10/2017 11:37 AM Dictated By: LOGAN ALLRED MD 113 Transcribed By: MADELYN on 08/10/17 113 COPY TO: BRETT DUBOIS DO MRI SPINE LUMBAR WO [place] [address] Patient Name: BLAYNE YIP MR #: [id number] : 1955 Age/Sex: 62/F Req #: [id number] Adm Physician: Ordered by: VANNESSA MONTEMAYOR MD Report #: [id number] Location: MRI Room/Bed: Procedure: [id number] MRI/MRI SPINE LUMBAR WO Exam Date: Exam Time: REPORT STATUS: Signed EXAMINATION: MRI of the lumbar spine without contrast HISTORY: Chronic low back pain COMPARISON: Lumbar spine MRI on 05-05-14 TECHNIQUE: Sagittal T1, T2, STIR; axial T2 and proton density. FINDINGS: It is assumed that there are 5 lumbar vertebrae. Curvature/Alignment: Normal lordosis. Vertebrae: No evidence of recent fracture, infection, or neoplasm. Conus: Normal, terminating at T12-L1 Cauda equina: Unremarkable. Lower thoracic: Mild disc bulge at T10-T11 and T11-T12 without stenosis Paraspinal soft tissues: Partially visualized T2 hyperintense portable cyst in the left kidney. Degenerative changes: L1-L2: Unremarkable. L2-L3: Decreased disc height and T2 signal intensity, slightly asymmetric to the left and minimal facet arthroses. No significant canal or foraminal stenosis L3-L4: Decrease disc height and T2 signal intensity, mild symmetric disc bulge, prominent facet arthrosis. Minimal anterolisthesis. No significant canal or foraminal stenosis. L4-L5: Decreased disc height and T2 signal intensity, mild symmetric disc bulge and bilateral facet arthrosis. Moderate right and mild left foraminal stenosis. No significant canal stenosis L5-S1: Minimal facet arthrosis. No canal or foraminal stenosis IMPRESSION: 1. Moderate right and mild left degenerative foraminal stenoses at L4-5. No evidence of neural compression. 2. Mild spondylosis and facet arthrosis from L2-L3 to L4-5 otherwise without significant canal or foraminal stenosis. 3. Minimal degenerative spondylolisthesis at L3-L4. Signed by: Dr. Jose Miguel Anne M.D. on 07/16/2017 1:27 PM Dictated By: JOSE MIGUEL ANNE MD 26 Transcribed By: MADELYN on 07/16/171326 COPY TO: VANNESSA MONTEMAYOR MD MRI SHOULDER LEFT WO [place] [address] Patient Name: BLAYNE YIP MR #: [id number] : 1955 Age/Sex: 61/F Req #: [id number] [facility] Physician: Ordered by: LYNNETTE HAHN MD Report #: [id number] Location: MRI Room/Bed: Procedure: [id number] MRI/MRI SHOULDER LEFT WO Exam Date: 01/22/17 Exam Time: 1255 REPORT STATUS: Signed TECHNIQUE: Magnetic resonance imaging of the LEFT SHOULDER was performed WITHOUT injected contrast. COMPARISON: None available. HISTORY: Left shoulder pain FINDINGS: The MRI is nondiagnostic due to multiple factors including susceptibility artifact from the patient's hardware, patient motion, and sequence selection. Attempts were made to repeat images. Limited findings: Remote acromioclavicular separation High- grade rotator cuff tearing predominantly involving the supraspinatus and subscapularis with atrophy, severe of the subscapularis. IMPRESSION: Nondiagnostic MRI as above. Patient should not be billed. Signed by: Dr. Chauncey Nix M.D. on 01/26/2017 9:50 AM Dictated By: CHAUNCEY NIX MD Charly ranscribed By: MADELYN on 01/26/1750 COPY TO: LYNNETTE HAHN MD
[2018-08-07] MEDS ORDERED: TETANUS/DIPHTHERIA TOX ADULT 0.5 ML SYR IM ONE (14:15)
[2018-08-07] MEDS ORDERED: LIDOCAINE 1% W/EPINEPHRINE 20 ML VIAL INJ ONE (14:15)
--- NOTE | 2018-08-07 14:16 | NUR ---
C. Short SCHEDULE ANALYST at bedside for laceration repair. Pt education given on wound care, pt verbalizes understanding.
--- NOTE | 2018-08-07 14:56 | NUR ---
Family of the pt came to the nurse's station in an aggressive tone stating "what is going on? This is taking too long!" Pt's family member is informed and reassured that the pt will have her a head scanned and that information will be provided as soon as it is recieved.
--- NOTE | 2018-08-07 15:46 | Diagnostic Imaging Report ---
CT BRAIN WO HISTORY: Head injury COMPARISON: MRI of the brain 08/09/2017 Technique: Noncontrast axial scans were obtained from skull base to the vertex. Coronal and sagittal reconstructions obtained from the axial data. One or more of the following dose reduction techniques were used: Automated exposure control, adjustment of the mA and/or kV according to patient size, and/or utilization of iterative reconstruction technique. Motion and beam hardening artifacts obscure some details. DISCUSSION: Scalp/Skull: Unremarkable. Brain sulci: Mildly prominent. Ventricles: Compensatory dilatation. Extra-axial spaces: No masses or fluid collections. Parenchyma: Mild bilateral deep white matter hypodensity is likely chronic microvascular ischemic change. Otherwise, no definite masses, hemorrhage, or large vascular territory acute infarct. Dural sinuses: No abnormal densities. Sellar/Suprasellar region: Intact. Skull base: Intact. Incidental findings: None. IMPRESSION: 1. No acute intracranial abnormalities. 2. Mild supratentorial chronic microvascular ischemic change. Mild generalized cerebral volume loss. Signed by: Dr. Lincoln Barbour M.D. on 08/07/2018 3:43 PM
[2018-08-07 16:08] VITALS: BP 111/84
== END 2018-08-07 16:02 | disposition home or self-care (01) ==
LOC: ER 12:35
DX: S01.81XA Laceration without foreign body of other part of head, initial encounter (principal); W01.198A Fall on same level from slipping, tripping and stumbling with subsequent striking against other object, initial encounter; Y93.01 Activity, walking, marching and hiking; Y92.008 Other place in unspecified non-institutional (private) residence as the place of occurrence of the external cause
CPT/HCPCS: 70450; 90714; 99283

== ENCOUNTER → 2018-12-19 | Outpatient (CLI) | payer MEDICARE, OTHER ==
--- NOTE | 2018-12-19 12:18 | Diagnostic Imaging Report ---
EXAM: Complete Abdominal Ultrasound INDICATION: ^[id number] ^[id number] ^RIGHT LOWER QUADRANT ABDOMINAL PAIN COMPARISON: None. TECHNIQUE: Transverse and longitudinal images of the upper abdomen were obtained. FINDINGS: Liver: Size: 14.1 cm in the right midclavicular line, normal Appearance: Normal echogenicity, smooth contour Mass: No focal masses Spleen: Size: 10.3 cm in length, normal Echogenicity: Normal Mass: No focal masses Gallbladder: Stones/Sludge: None Wall: 0.2 cm Appearance: No wall thickening, pericholecystic fluid or hydrops. Sonographic Mancuso's Sign: Negative Bile Ducts: Intrahepatic Ducts: No dilatation Extrahepatic Ducts: Common bile duct measures 0.3 cm, no dilatation Pancreas: Visualized portions of the neck and proximal body are unremarkable. Kidneys: Length: Right 8.7 cm Left 10.0 cm Echogenicity: Normal Collecting System: No hydronephrosis Stone: None Cyst/Mass: 3.5 x 3.7 x 3.4 cm cystic, anechoic, partly solid lesion in the mid to inferior aspect of the left kidney Vessels: Aorta: Visualized portions are normal Inferior Vena Cava: Visualized portions are normal Main Portal Vein: 1.2 cm, normal size with hepatopetal flow. Free Fluid: No ascites or pleural effusion IMPRESSION: 1. 3.7 cm simple cyst in the mid to inferior left kidney. No further follow-up is indicated. 2. Otherwise, unremarkable exam. Signed by: Dr. Wilbur Ryan M.D. on 12/19/2018 12:14 PM
== END ==
LOC: US 09:06
PROVIDERS: ATTEND Family Medicine
DX: R10.31 Right lower quadrant pain (principal)
CPT/HCPCS: 76700

== ENCOUNTER → 2019-07-18 | Outpatient (CLI) | payer MEDICARE ==
--- NOTE | 2019-07-18 12:42 | Diagnostic Imaging Report ---
Right hip, 2 views. History: Right hip pain. Findings: The soft tissues are normal. Bone mineralization is normal. There is no evidence of fracture or dislocation. There are no lytic or sclerotic lesions. The hip joint is within normal limits. Spinal stimulator is noted. IMPRESSION: Normal right hip. Signed by: Max Lyn on 07/18/2019 12:38 PM
== END ==
LOC: RAD 10:40
PROVIDERS: ATTEND Anesthesiology
DX: M25.551 Pain in right hip (principal)

== ENCOUNTER → 2020-01-15 | Outpatient (CLI) | payer MEDICARE ==
--- NOTE | 2020-01-15 15:33 | Diagnostic Imaging Report ---
EXAM: Renal Ultrasound INDICATION: ^[id number] ^[id number] ^CYST OF KIDNEY COMPARISON: None TECHNIQUE: Transverse and longitudinal images of the kidneys and bladder were obtained. FINDINGS: Right Kidney: Length: 9.1 cm Appearance: Normal echogenicity. Collecting system: No hydronephrosis Stones: None Cyst/Mass: None Left Kidney: Length: 9.2 cm Appearance: Normal echogenicity. Collecting system: No hydronephrosis Stones: None Cyst/Mass: Left lower pole anechoic simple cyst measures up to 3.5 x 3.5 x 3.6 cm. Bladder: Decompressed bladder. Ureteral jets not visualized. Bladder volume estimate of 10 cc. IMPRESSION: No hydronephrosis or renal calculi. Left lower pole simple renal cyst. Signed by: Homa Foley MD on 01/15/2020 3:29 PM
== END ==
LOC: US 14:29
PROVIDERS: ATTEND Urology
DX: N28.1 Cyst of kidney, acquired (principal)
CPT/HCPCS: 76770

== ENCOUNTER → 2020-08-25 | Outpatient (CLI) | payer OTHER, MEDICARE | LOC: MRI 13:51 | PROVIDERS: ATTEND Family Medicine | DX: M54.2 Cervicalgia (principal) ==

== ENCOUNTER → 2020-08-30 | Emergency (ER) | payer MEDICARE ==
[~2020-08-30] VITALS: Ht 160 cm; Wt 64.0 kg
== END | disposition left against medical advice (07) ==
LOC: ER 22:11
DX: M25.511 Pain in right shoulder (principal); M54.2 Cervicalgia

== ENCOUNTER → 2020-10-25 | Outpatient (CLI) | payer MEDICARE ==
[2020-10-25 08:21] LABS: CREATININE, SERUM 1.06 mg/dL (0.57-1.11)
== END ==
LOC: MRI 07:04
PROVIDERS: ATTEND Family Medicine
DX: M54.2 Cervicalgia (principal)
CPT/HCPCS: 36415; 82565; 84520

== ENCOUNTER 2021-01-05 03:41 | Emergency (ER) | payer MEDICARE ==
[~2021-01-05] VITALS: Ht 160 cm; Wt 64.0 kg
[2021-01-05] MEDS ORDERED: DEXAMETHASONE 4 MG TAB PO STA (04:07)
[2021-01-05] MEDS ORDERED: DEXAMETHASONE 4 MG TAB PO SCH (04:10)
[2021-01-05] MEDS ORDERED: FAMOTIDINE 20 MG TAB PO ONE (04:15)
[2021-01-05] MEDS ORDERED: DEXAMETHASONE 4 MG TAB ONE (04:18)
[2021-01-05] MEDS ORDERED: FAMOTIDINE 20 MG TAB ONE (04:19)
== END 2021-01-05 04:43 | disposition home or self-care (01) ==
LOC: ER 04:00
DX: L29.9 Pruritus, unspecified (principal); I10 Essential (primary) hypertension; Z87.820 Personal history of traumatic brain injury
CPT/HCPCS: 99282; J8540

== ENCOUNTER → 2021-06-17 | Outpatient (CLI) | payer OTHER, MEDICARE | LOC: RAD 12:27 | PROVIDERS: ATTEND Pain Medicine Interventional Pain Medicine | DX: M25.551 Pain in right hip (principal) ==

== ENCOUNTER → 2021-11-29 | Outpatient (CLI) | payer MEDICARE, OTHER | LOC: MRI 10:13 | PROVIDERS: ATTEND Family Medicine | DX: R26.89 Other abnormalities of gait and mobility (principal); R29.6 Repeated falls | CPT/HCPCS: 70551 ==

== ENCOUNTER 2022-11-06 11:53 | Emergency (ER) | payer MEDICARE ==
[~2022-11-06] VITALS: Ht 160 cm; Wt 64.0 kg
[2022-11-06 13:21] LABS: BASOPHILS % 0.2 % (0.0-1.0); EOSINOPHILS # (AUTO) 0.2 (0.0-0.4); EOSINOPHILS % 1.7 % (0.0-6.0); HEMATOCRIT 36.2 % (34.2-44.1); HEMOGLOBIN 11.6 g/dL (12.0-16.0); LYMPHOCYTES % 15.7 % (18.0-39.1); MEAN CORPUSCULAR HEMOGLOBIN 29.7 pg (28-32); MEAN CORPUSCULAR VOLUME 92.8 fL (81-99); MONOCYTES # (AUTO) 0.7 (0.2-0.8); MONOCYTES % 5.6 % (4.4-11.3); NEUTROPHILS # (AUTO) 9.6 (2.1-6.9); NEUTROPHILS % 76.6 % (38.7-80.0); PLATELET COUNT 215 x10e3/uL (140-360); RED CELL DISTRIBUTION WIDTH 13.9 % (11.7-14.4)
[2022-11-06 13:36] LABS: ALBUMIN 3.9 g/dL (3.5-5.0); ALBUMIN/GLOBULIN RATIO 1.3 (0.8-2.0); ANION GAP 13.2 mmol/L (8-16); CALCIUM 9.4 mg/dL (8.4-10.2); CREATININE, SERUM 1.78 mg/dL (0.57-1.11); POTASSIUM 4.2 mmol/L (3.5-5.1)
[2022-11-06] MEDS ORDERED: LACTATED RINGER'S 1,000 ML INJ ONE (13:45)
[2022-11-06 14:02] LABS: CLARITY,URINE SL CLOUDY (CLEAR); COLOR,URINE YELLOW (YELLOW); KETONES,URINE NEGATIVE (NEGATIVE); LEUKOCYTE ESTERASE ,URINE NEGATIVE (NEGATIVE); NITRITE,URINE NEGATIVE (NEGATIVE); PROTEIN,URINE DIPSTICK NEGATIVE (NEGATIVE); RBC,URINE 0-5 /HPF (0-5); URINE UROBILINOGEN 0.2 mg/dL (0.2 - 1)
[2022-11-06 14:03] LABS: BACTERIA,URINE FEW /HPF; EPITHELIAL CELLS,URINE MODERATE /LPF; HYALINE CASTS >15 (0-1)
[2022-11-06 14:21] VITALS: O2SAT 100
== END 2022-11-06 15:20 | disposition home or self-care (01) ==
LOC: ER 11:57
DX: R53.1 Weakness (principal); R05.9 Cough, unspecified; T50.995A Adverse effect of other drugs, medicaments and biological substances, initial encounter; I10 Essential (primary) hypertension; M54.9 Dorsalgia, unspecified; G89.29 Other chronic pain; R94.31 Abnormal electrocardiogram [ECG] [EKG]; Z86.73 Personal history of transient ischemic attack (TIA), and cerebral infarction without residual deficits
CPT/HCPCS: 36415; 70450; 71045; 80053; 81001; 84484; 85025; 93005; 99284; J7121

== ENCOUNTER → 2023-03-21 | Outpatient (REF) | payer MEDICARE | LOC: MRI 06:55 | PROVIDERS: ATTEND Family Medicine | DX: M17.12 Unilateral primary osteoarthritis, left knee (principal); M23.92 Unspecified internal derangement of left knee ==

== ENCOUNTER → 2024-07-09 | Outpatient (REF) | payer MEDICARE | LOC: RAD 09:22 | PROVIDERS: ATTEND Nurse Practitioner Gerontology | DX: M25.552 Pain in left hip (principal); M25.551 Pain in right hip | CPT/HCPCS: 73521 ==

== ENCOUNTER → 2024-08-22 | Outpatient (REF) | payer MEDICARE | LOC: CT 12:54 | PROVIDERS: ATTEND Family Medicine | DX: M85.611 Other cyst of bone, right shoulder (principal) | CPT/HCPCS: 73200 ==

== ENCOUNTER → 2024-08-28 | Outpatient (REF) | payer MEDICARE | LOC: MRI 07:58 | PROVIDERS: ATTEND Nurse Practitioner Gerontology | DX: M25.552 Pain in left hip (principal); M25.551 Pain in right hip ==

== ENCOUNTER → 2025-02-05 | Outpatient (REF) | payer MEDICARE | LOC: MRI 10:27 | PROVIDERS: ATTEND Family Medicine | DX: R29.898 Other symptoms and signs involving the musculoskeletal system (principal) ==

== ENCOUNTER → 2025-03-13 | Outpatient (REF) | payer MEDICARE | LOC: MRI 10:14 | PROVIDERS: ATTEND Orthopaedic Surgery | DX: M19.011 Primary osteoarthritis, right shoulder (principal); M75.101 Unspecified rotator cuff tear or rupture of right shoulder, not specified as traumatic ==